=== PATIENT | female | born 1975 | race Caucasian/White ===

== ENCOUNTER 2023-06-14 14:15 | Emergency (ER) | payer BC ==
[2023-06-14] MEDS ORDERED: Promethazine HCl 25 MG/ML VIAL ONE (14:51)
[2023-06-14] MEDS ORDERED: Dicyclomine 20 MG/2 ML VIAL ONE (14:51)
[2023-06-14] MEDS ORDERED: Lactated Ringer's 2,000 ML ONE (14:51)
[2023-06-14] MEDS ORDERED: Ketorolac Tromethamine 30 MG/ML VIAL ONE (14:51)
[2023-06-14 15:22] LABS: ALT (SGPT) 25 U/L (8-55); AST (SGOT) 26 U/L (5-34); Albumin 4.1 g/dL (3.5-5.0); Alkaline Phosphatase 81 U/L (40-110); Anion Gap 15 mmol/L (10-20); BUN (Urea Nitrogen) 17 mg/dL (7.0-18.7); CK (CPK) 80 U/L (29-168); Calc. Creatinine Clearance 0 mL/min (70-130); Calcium 9.3 mg/dL (7.8-10.44); Carbon Dioxide 25 mmol/L (22-29); Chloride 102 mmol/L (98-107); Estimated GFR 65; Glucose 106 mg/dL (70-105); Lipase 8 U/L (8-78); Magnesium 1.8 mg/dL (1.6-2.6); Potassium 3.4 mmol/L (3.5-5.1); Protein, Total 7.1 g/dL (6.0-8.3); Sodium 139 mmol/L (136-145)
[2023-06-14 15:27] LABS: BHCG - Serum Negative (NEGATIVE); Pregs Control Background? CLEAR/WHITE (CLR/WHITE); Pregs Control Bar Appear? YES (CONTROL BAR)
[2023-06-14 15:31] LABS: Band 26 % (5-11); Eosinophils 1 % (0-10); Hematocrit 44.4 % (36.0-47.0); Hemoglobin 14.8 g/dL (12.0-16.0); Lymphocytes 10 % (21-51); MDiff Complete? YES; Mean Corpuscular HGB CONC 33.4 g/dL (32.0-36.0); Mean Corpuscular Hemoglobin 31.1 pg (27.0-31.0); Mean Corpuscular Volume 92.9 fl (78.0-98.0); Mean Platelet Volume 7.5 fL (7.4-10.4); Monocytes 9 % (0-10); Neutrophil 54 % (42-75); Platelet Adequacy Comment Appears Adequate; Platelet Count 141 10x3/uL (130-400); Red Blood Cell (RBC) Count 4.78 mill/uL (4.20-5.40); White Blood Cell (WBC) Count 6.4 10x3/uL (4.8-10.8)
[2023-06-14 15:40] LABS: Bilirubin Small (Negative); Blood, Urine Negative (Negative); Glucose, Urine (Dipstick) Negative (Negative); Ketone, Urine 15 mg/dL (Negative); Leukocyte Negative (Negative); Nitrite Negative (Negative); Protein, Urine (Dipstick) 100 mg/dL (Neg-Trace); Urobilinogen 0.2 mg/dL (Less than 2)
[2023-06-14 15:42] LABS: Clarity Hazy (Clear)
[2023-06-14 15:43] LABS: CAUTI Indications for Culture Dysuria,urgency,freq; Specific Gravity, Urine 1.032 (1.002-1.036)
[2023-06-14 15:46] LABS: Bacteria/HPF 3+ HPF (None Seen); RBC/HPF 0-3 HPF (0-3); Squamous Epithelial 0-3 HPF (0-3); WBC/HPF 0-3 HPF (0-3)
[2023-06-14 15:47] LABS: Urine Culture Reflex No No
[2023-06-14] MEDS ORDERED: Potassium Chloride 20 MEQ TAB ONE (15:59)
[2023-06-14] MEDS ORDERED: Azithromycin 250 MG TAB ONE (15:59)
[2023-06-14] MEDS ORDERED: Famotidine/PF 20 mg/2ml Vial ONE (16:23)
[2023-06-14 16:33] LABS: SARS-CoV-2 NAA Rapid Test Not Detected (NotDetected)
[2023-06-15 04:18] LABS: Campy jejuni + coli by PCR Negative (Negative); STEC Shiga Toxin 1+2 Negative (Negative); Salmonella spp. by PCR POSITIVE (Negative); Shigella spp + EIEC by PCR Negative (Negative)
== END 2023-06-14 17:13 | disposition home or self-care (01) ==
LOC: MADERS 14:15
DX: R19.7 Diarrhea, unspecified (principal); D72.825 Bandemia; E87.6 Hypokalemia; E03.9 Hypothyroidism, unspecified; Z20.822 Contact with and (suspected) exposure to COVID-19
CPT/HCPCS: 36415; 80053; 81001; 82550; 83605; 83690; 83735; 84703; 85025; 87040; 87077; 87149; 87186; 87324; 87328; 87329; 87449; 87505; 93005; 94760; 96372; 96374; J1885; J2550; J7120; S0028